=== PATIENT | male | born 1945 | race Caucasian/White ===

== ENCOUNTER 2019-12-24 07:35 | Outpatient (CLI) | payer MEDICARE | END 2019-12-24 23:59 | disposition home or self-care (01) | LOC: CVU 07:35 → CFH 23:59 | PROVIDERS: ATTEND Internal Medicine Cardiovascular Disease | DX: Z01.810 Encounter for preprocedural cardiovascular examination (principal); I06.2 Rheumatic aortic stenosis with insufficiency | CPT/HCPCS: 78452; 93017; 93306; A9502 ==

== ENCOUNTER → 2020-01-24 | Outpatient (CLI) | payer MEDICARE ==
[~2020-01-24] MED LIST: AMLO-150 PO; NAPR220C2 PO
== END | disposition home or self-care (01) ==
LOC: STAR 11:46
PROVIDERS: ATTEND Orthopaedic Surgery
DX: Z01.818 Encounter for other preprocedural examination (principal); Z11.59 Encounter for screening for other viral diseases; M25.511 Pain in right shoulder; M75.121 Complete rotator cuff tear or rupture of right shoulder, not specified as traumatic; M75.21 Bicipital tendinitis, right shoulder; R00.1 Bradycardia, unspecified
CPT/HCPCS: 93005; U0001

== ENCOUNTER 2020-01-28 07:02 | Day surgery (SDC) | payer MEDICARE ==
[~2020-01-28] VITALS: Ht 175.3 cm; Wt 85.0 kg
[2020-01-28 06:08] VITALS: BP 139/85
[~2020-01-28 07:02] MED LIST changes: +BUPIVACAINE/PF-EPI 0.5% 1:200K ONE; +CHLORHEXIDINE 15 ML UDC MM STA; +EPHEDRINE 50 MG/ML, 1ML ONE; +FENTANYL PF 100 MCG/2ML ONE; +LACTATED RINGERS 1,000 ML IV SCH; +LIDOCAINE 1%-EPI 1:100K, 20ML ONE; +MIDAZOLAM 1 MG/ML, 2ML ONE
[2020-01-28] MEDS ORDERED: PROMETHAZINE 25 MG/ML, 1ML IVPush PRN (07:30)
[2020-01-28] MEDS ORDERED: LABETALOL 5MG/ML, 20ML IV PRN (07:30)
[2020-01-28] MEDS ORDERED: ACETAMINOPHEN 325 MG TABLET PO PRN (07:30)
[2020-01-28] MEDS ORDERED: MEPERIDINE/PF 25MG/0.5ML IVPush PRN (07:30)
[2020-01-28] MEDS ORDERED: ALBUTEROL SULFATE 2.5 MG/3 ML NPPB PRN (07:30)
[2020-01-28] MEDS ORDERED: NAPROXEN 250 MG TABLET PO PRN (07:30)
[2020-01-28] MEDS ORDERED: hydrALAzine 20 MG/ML, 1ML IV PRN (07:30)
[2020-01-28] MEDS ORDERED: OXYcodone 5 MG/5 ML ORAL.SOL UDC PO PRN (07:30)
[2020-01-28] MEDS ORDERED: HYDROmorphone 1 MG/ML, 1ML INJ IVPush PRN (07:30)
[2020-01-28] MEDS ORDERED: MIDAZOLAM 1 MG/ML, 2ML IV PRN (07:30)
[2020-01-28] MEDS ORDERED: FENTANYL PF 100 MCG/2ML IV PRN (07:30)
[2020-01-28] MEDS ORDERED: LIDOCAINE-MPF 2% ,5ML ONE (07:51)
[2020-01-28] MEDS ORDERED: BUPIVACAINE/PF 0.5% ONE (07:51)
[2020-01-28] MEDS ORDERED: ONDANSETRON 2MG/ML, 2ML ONE (07:52)
[2020-01-28] MEDS ORDERED: ROCURONIUM 10MG/ML,5ML ONE (07:52)
[2020-01-28] MEDS ORDERED: PROPOFOL 10 MG/ML, 20ML ONE (07:52)
[2020-01-28] MEDS ORDERED: GLYCOPYRROLATE 0.2MG/1ML, 5ML ONE (07:52)
[2020-01-28] MEDS ORDERED: DEXAMETHASONE 4 MG/ML, 1ML ONE (07:52)
[2020-01-28] MEDS ORDERED: CEFAZOLIN 1,000 MG ONE (07:52)
[2020-01-28] MEDS ORDERED: SUCCINYLCHOLINE 20 MG/ML, 10ML ONE (07:52)
[2020-01-28] MEDS ORDERED: NEOSTIGMINE 1 MG/ML, 10ML ONE (07:52)
[2020-01-28] MEDS ORDERED: AMLODIPINE 5 MG TABLET PO SCH (09:00)
== END 2020-01-28 10:15 | disposition home or self-care (01) ==
LOC: UNDOADMOB 07:02 → ORIP 07:02 → OUT 07:02 → UNDODISOB 10:15 → OUT 10:15
PROVIDERS: ATTEND Orthopaedic Surgery
DX: S46.011A Strain of muscle(s) and tendon(s) of the rotator cuff of right shoulder, initial encounter (principal); S43.431A Superior glenoid labrum lesion of right shoulder, initial encounter; S46.211A Strain of muscle, fascia and tendon of other parts of biceps, right arm, initial encounter; M25.811 Other specified joint disorders, right shoulder; X58.XXXA Exposure to other specified factors, initial encounter; Y93.89 Activity, other specified; Y92.89 Other specified places as the place of occurrence of the external cause; Y99.8 Other external cause status; Z88.5 Allergy status to narcotic agent; M19.90 Unspecified osteoarthritis, unspecified site; Z86.73 Personal history of transient ischemic attack (TIA), and cerebral infarction without residual deficits; Z72.89 Other problems related to lifestyle; Z82.3 Family history of stroke
CPT/HCPCS: 29824; 29826; 29827; 29828; 64415; C1713; J0330; J0690; J1100; J2250; J2405; J2704; J3010; J3490; J7120; G0378; J2710